=== PATIENT | male | born 1965 | race Caucasian/White ===

== ENCOUNTER 2019-11-28 11:14 | Emergency (ER) | payer OTHER, SELFPAY ==
--- NOTE | ~2019-11-28 | XR_ITS ---
XR hand RT min 3V 11/28/2019 11:27 INDICATION: Right hand pain after trauma PROCEDURE: 3 views right hand COMPARISON: 08/19/2019 FINDINGS: Fracture, dislocation or subluxation is not identified. The soft tissues appear within norm al limits. No foreign bodies are identified. IMPRESSION: 1: NO ACUTE BONE OR JOINT ABNORMALITY IDENTIFIED. Reviewed, dictated and finalized at location B.
--- NOTE | 2019-11-28 11:27 | ED.UPPEXIN ---
HPI - Extremity Injury (Upper) General Chief Complaint: Extremity Injury, Upper Stated Complaint: rt injury Time Seen by Provider: 11/28/19 11:25 Source: patient and RN notes reviewed Mode of arrival: ambulatory Limitations: no limitations History of Present Illness HPI narrative: 54 year old male who presents to [facility] care with complaints of injury to his right hand while at work today approximately 30 minutes ago.Patient states that handle off of press equipment came back and hit him across his right hand along his knuckle with pain most severe over 2rd and 3th knuckles with two small abrasions noted to hand. Patient is able to bend his fingers but pain is stated to be throbbing to his hand dorsal aspect, rates it as 8/10. Patient concerned of possible fracture especially since history of osteoporosis. MD complaint: injury to: right and hand Onset (ago): minute(s) (30) Other Extremity Injury: Right: hand Place: work Severity: severe Severity scale (1-10): 8 (throbbing) Relieving factors: none Exacerbating factors: movement of extremity Context: direct blow Associated symptoms: denies other symptoms Related Data Home Medications Medication Instructions Recorded Confirmed alendronate 70 mg PO WEEKLY 11/28/19 11/28/19 folic acid 1 mg PO DAILY 11/28/19 11/28/19 Allergies Allergy/AdvReac Type Severity Reaction Status Date / Time Iodinated Contrast Media Allergy Hives Verified 11/28/19 11:24 Review of Systems Review of Systems: Narrative: CONSTITUTIONAL: Denies fever, chills, or sweats. EYES: Denies visual changes, redness, or discharge. ENT: Denies rhinorrhea, congestion, sore throat, or otalgia. CARDIOVASCULAR: Denies chest pain, palpitations, or edema. RESPIRATORY: Denies cough or dyspnea. GASTROINTESTINAL: Denies abdominal pain, nausea, vomiting, or diarrhea. GENITOURINARY: Denies dysuria or hematuria. SKIN: Denies rash or itching. MUSCULOSKELETAL: Denies back pain, positive for pain to dorsal aspect of right hand over his knuckles from trauma which occurred at work today. NEUROLOGIC: Denies headache, numbness, or weakness. PSYCHIATRIC: Denies anxiety or depression. All systems reviewed & are unremarkable except as noted in HPI and below PMFSH Past Medical History Medical History (Updated 11/28/19 @ 17:10 by Klaudia Gonzalez NP) Anxiety Cirrhosis of liver Fracture, mandible GERD (gastroesophageal reflux disease) Hiatal hernia Hypertension Kidney stone Osteoporosis Surgical History Surgical History (Updated 11/28/19 @ 17:00 by Klaudia Gonzalez NP) History of cholecystectomy Family History Family History Father Carcinoma of colon Mother Hypertension Social History Social History (Updated 11/28/19 @ 16:59 by Klaudia Gonzalez NP) Smoking status: Former smoker Tobacco type: cigarettes Smoking end date: 02/05/15 Alcohol intake: former Alcohol use details: No alcohol since 2015 Substance use: unknown Comments At time of signature, agree with nursing past medical, surgical, social and family history. There is no relevant family history pertinent to the presenting complaint Exam Narrative: Exam Narrative: GENERAL: Well-appearing, well-nourished, and in no acute distress. HEAD: Normocephalic, atraumatic. EYES: PERRLA and EOMI. ENT: Nares clear, no rhinorrhea or epistaxis. Mucous membranes moist. NECK: Supple. no lymphadenopathy CHEST: Clear to auscultation. No respiratory distress.SAO2 100% on room air. HEART: Regular rate and rhythm. No murmur heard. Normal peripheral pulses. ABDOMEN: Soft, nontender, nondistended, normal active bowel sounds. EXTREMITIES: Normal range of motion. No edema. Pain with swelling to dorsal aspect of right hand across knuckle region with no acute bruising or redness noted, patient is able to move all fingers on own power, strong right radial pulse, nail bed emma well. SKIN: Warm, dry, no rash.
[2019-11-28 11:29] VITALS: BP 136/76; PULSE 63; RESP 16; TEMP 36.4; O2SAT 100
== END 2019-11-28 12:13 | disposition home or self-care (01) ==
PROVIDERS: Emergency Provider Registered Nurse
DX: S60.221A Contusion of right hand, initial encounter (principal); W22.8XXA Striking against or struck by other objects, initial encounter; Y99.0 Civilian activity done for income or pay; K74.60 Unspecified cirrhosis of liver; K21.9 Gastro-esophageal reflux disease without esophagitis; I10 Essential (primary) hypertension; M81.0 Age-related osteoporosis without current pathological fracture
CPT/HCPCS: 73130; 99213; G0463

== ENCOUNTER 2020-04-15 08:54 | Emergency (ER) | payer OTHER, SELFPAY ==
--- NOTE | ~2020-04-15 | CT_ITS ---
EXAMINATION: CT abdomen pelvis wo con DATE: 04/15/2020 10:45 INDICATION: Perirectal pain and abscess. TECHNIQUE: Computed tomography (CT) of the abdomen and pelvis was performed without intravenous contr ast. Automated exposure control and iterative reconstruction technique were employed. The dose-length product was 748.71 mGy-cm. COMPARISON: CT abdomen and pelvis 03/17/2016 FINDINGS: The visualized portions of the lung bases demonstrate mild atelectasis. Again seen is a 4 m m nodule in right middle lobe, likely benign. There are small right and trace left pleural effusions. The heart size is normal. No pericardial effusion. The liver demonstrates surface nodularity, consis tent with cirrhosis. There are changes of cholecystectomy. There is mild splenomegaly. Paraesophageal varices are noted. There is a paraumbilical portacaval shunt. The pancreas, adrenal glands, and kidn eys are normal. There is no urolithiasis. There are no dilated loops of bowel. The appendix is normal . There are no pathologically enlarged lymph nodes. There is no free intraperitoneal fluid. There is a 2.2 x 1.2 cm perianal mass. No definite drainable fluid. There is mild lumbar spondylosis. There ar e multiple chronic vertebral body fractures in the spine. IMPRESSION: 1. 2.2 x 1.2 cm perianal mass, consistent with phlegmon. 2. Cirrhosis of the liver with portal venous hypertension. 3. Small right pleural effusion. Reviewed, dictated and finalized at location A. [employer]ER
[2020-04-15 09:30] VITALS: BP 128/81; PULSE 52; RESP 14; TEMP 36.4; O2SAT 100
[2020-04-15] MEDS: SODIUM CHLORIDE 0.9% IV 1,000 ML 999 ML IV CONT (10:31)
[2020-04-15 11:24] LABS: Basophils Percent Auto 0.4 % (0.2-1.2); Eosinophils Absolute Auto 0.2 K/mm3 (0-0.3); Eosinophils Percent Auto 3.2 % (0-4.4); Hematocrit 41.5 % (42.0-52.0); Hemoglobin 14.2 g/dL (14.0-18.0); Immature Granulocyte Absolute 0.01 K/mm3 (0.00-0.031); Immature Granulocyte Percent A 0.2 % (0-0.5); Lymphocytes Absolute Auto 1.05 K/mm3 (0.9-3.2); Mean Corpuscular HGB Conc 34.2 g/dl (32-36); Mean Corpuscular Hemoglobin 32.4 pg (26-34); Mean Corpuscular Volume 94.7 fl (80-100); Mean Platelet Volume 12.7 fl (7.4-10.4); Monocytes Absolute Auto 0.7 K/mm3 (0.1-0.6); Monocytes Percent Auto 13.4 % (2.6-8.5); Neutrophils Absolute Auto 3.1 K/mm3 (1.3-6.7); Neutrophils Percent Auto 61.8 % (45.5-73.1); Platelet Count Result 73 k/mm3 (150-375); Red Blood Count 4.38 M/mm3 (4.6-6.20); Red Cell Distribution Width 13.2 % (11.5-14.5)
--- NOTE | 2020-04-15 11:36 | ED.GENADULT ---
HPI - General Adult General Chief complaint: Skin/Abscess/Foreign Body <Ricky Hunt PA-C - Last Filed: 04/15/20 11:56> Stated complaint: abscess on bottom <Ricky Hunt PA-C - Last Filed: 04/15/20 11:56> Time Seen by Provider: 04/15/20 09:28 <Ricky Hunt PA-C - Last Filed: 04/15/20 11:56> Source: patient and family <Ricky Hunt PA-C - Last Filed: 04/15/20 11:56> Mode of arrival: ambulatory <Ricky Hunt PA-C - Last Filed: 04/15/20 11:56> Limitations: no limitations <Ricky Hunt PA-C - Last Filed: 04/15/20 11:56> History of Present Illness HPI narrative: Patient is a 55-year-old male who presents with 1 week duration of rectal pain patient notes history of perirectal abscess in this location which has been lanced twice patient has seen general surgery the last time he had it lanced patient presents noting pain worse in the rectum denies any fever chills nausea vomiting or other complaints <Ricky Hunt PA-C - Last Filed: 04/15/20 11:56> Related Data Home medications: Home Medications Medication Instructions Recorded Confirmed alendronate 70 mg PO WEEKLY 11/28/19 11/28/19 folic acid 1 mg PO DAILY 11/28/19 11/28/19 <Ricky Hunt PA-C - Last Filed: 04/15/20 11:56> Allergies/adverse reactions: Allergies Allergy/AdvReac Type Severity Reaction Status Date / Time Iodinated Contrast Media Allergy Hives Verified 04/15/20 09:41 <Ricky Hunt PA-C - Last Filed: 04/15/20 11:56> Review of Systems Review of Systems: All systems reviewed & are unremarkable except as noted in HPI and below <Ricky Hunt PA-C - Last Filed: 04/15/20 11:56> PMFSH Past Medical History Medical History: Medical History Anxiety Cirrhosis of liver Fracture, mandible GERD (gastroesophageal reflux disease) Hiatal hernia Hypertension Kidney stone Osteoporosis <JASE Burk Last Filed: 04/15/20 11:56> Surgical History Surgical History: Surgical History History of cholecystectomy <Ricky Hunt PA-C - Last Filed: 04/15/20 11:56> Family History Family History: Family History Father Carcinoma of colon Mother Hypertension <Ricky Hunt PA-C - Last Filed: 04/15/20 11:56> Social History Social History: Social History Smoking status: Former smoker Tobacco type: cigarettes Smoking end date: 02/05/15 Alcohol intake: former Substance use: unknown <Ricky Hunt PA-C - Last Filed: 04/15/20 11:56> Exam Narrative: Exam Narrative: GENERAL: Well-appearing, well-nourished, and in no acute distress. HEAD: Normocephalic, atraumatic. EYES: PERRLA and EOMI. ENT: Nares clear, no rhinorrhea or epistaxis. Mucous membranes moist. CHEST: Clear to auscultation. No respiratory distress. No wheezes rales or rhonchi HEART: Regular rate and rhythm. No murmur heard. Normal peripheral pulses. ABDOMEN: Soft, nontender, nondistended. Tenderness around the perirectum around the prior incision there is no erythema swelling fluctuance noted no drainage from the rectum EXTREMITIES: Normal range of motion. No edema. SKIN: Warm, dry, no rash. NEURO: No focal deficits. Alert and oriented x3. PSYCH: Normal mood and affect. <Ricky Hunt PA-C - Last Filed: 04/15/20 11:56> Course Course Emergency Course: Patient in the room aware of case findings treatment plan and diagnosis agreeing to follow-up as instructed or to return if symptoms worsen or concerns. Patient aware of discussion with general surgery and recommendations was hydrated given medicine in the emergency department to include IV antibiotics will be placed on Augmentin as recommended by the general surgeon and
[2020-04-15 11:39] LABS: Alanine Aminotransferase 18 U/L (4-50); Albumin Level 3.6 g/dL (3.5-5.1); Alkaline Phosphatase 79 U/L (38-126); Anion Gap 3 mmol/L (8-16); Aspartate Amino Transferase 31 U/L (17-59); Bilirubin,Total 1.5 mg/dL (0.2-1.3); Blood Urea Nitrogen 17 mg/dL (9-20); CRP < 0.5 mg/dL (<1.0); Calcium 8.3 mg/dL (8.4-10.2); Carbon Dioxide 27 mmol/L (22-30); Chloride 106 mmol/L (98-107); Estimated CRCL calculation 105 ml/min; Estimated Glomerular Filt Rate > 60; Glucose 91 mg/dL (75-110); Potassium 4.2 mmol/L (3.4-5.0); Sodium 136 mmol/L (137-145)
[2020-04-15 12:00] VITALS: BP 117/77; PULSE 50; RESP 16; O2SAT 98
[2020-04-15] MEDS: AMPICILLIN SULB 3 GM/NS 100 ML 3 GM/100 ML VIAL IVPB (12:10)
[2020-04-15 12:45] VITALS: BP 115/80; PULSE 50; RESP 16; O2SAT 99
[2020-04-15 13:12] VITALS: BP 123/80; PULSE 51; RESP 16; O2SAT 99
== END 2020-04-15 13:10 | disposition home or self-care (01) ==
PROVIDERS: Emergency Medicine Emergency Medical Services; Emergency Provider General Practice
DX: K61.1 Rectal abscess (principal); K21.9 Gastro-esophageal reflux disease without esophagitis; Z87.442 Personal history of urinary calculi; M81.0 Age-related osteoporosis without current pathological fracture; Z87.891 Personal history of nicotine dependence; K76.6 Portal hypertension; K74.60 Unspecified cirrhosis of liver
CPT/HCPCS: 36415; 74176; 80053; 85025; 86140; 96361; 96365; 96367; 99284; J0131; J0295; J7030

== ENCOUNTER → 2021-02-01 10:50 | Outpatient (CLI) | payer OTHER, SELFPAY ==
--- NOTE | ~2021-02-01 | DEXA_ITS ---
Bone Density Report Name: ESTHER MCMANUS Age: 55 Sex: Male Ethnicity: White Date of : 1965 Indication: osteopenia; height loss; rheumatoid arthritis; Referring Provider: Khoi Camargo Study: Bone densitometry was performed. Exam Date: February 01, 2021 Accession number: [id number] Bone Density: Region BMD T-score Z-score Classification AP Spine (L1-L4) 0.990 -0.9 -0.5 Normal Femoral Neck (Left) 0.722 -1.5 -0.7 Osteopenia Total Hip (Left) 0.817 -1.4 -1.1 Osteopenia Femoral Neck (Right) 0.676 -1.9 -1.0 Osteopenia Total Hip (Right) 0.788 -1.6 -1.3 Osteopenia Total Hip Mean 0.803 -1.5 -1.2 Osteopenia World Health Organization criteria for BMD impression classify patients as: Normal (T-score at or above -1.0), Osteopenia (T-score between -1.0 and -2.5), or Osteoporosis (T-score at or below -2.5). 10-year Fracture Risk(1): Major Osteoporotic Fracture 6.8% Hip Fracture 1.0% Reported Risk Factors: [place] (), Neck BMD=0.676, BMI=31.4, rheumatoid arthritis (1) FRAX(R) Version 3.08. Fracture probability calculated for an untreated patient. Fracture probability may be lower if the patient has received treatment. Previous Exams: Region Exam Age BMD T-score BMD Change BMD Change Date g/cm2 vs Baseline vs Previous AP Spine(L1-L4) 02/01/2021 55 0.990 -0.9 0.157* 0.157* 12/11/2018 53 0.833 -2.3 Total Hip(Left) 02/01/2021 55 0.817 -1.4 0.038* 0.038* 12/11/2018 53 0.779 -1.7 Total Hip(Right) 02/01/2021 55 0.788 -1.6 0.035* 0.035* 12/11/2018 53 0.753 -1.9 *Denotes significance at 95% confidence level, LSC for AP Spine = 0.022 g/cm2, LSC for Total Hip = 0.027 g/cm2 Clinical Information Provided by Patient: Has rheumatoid arthritis Has used the following medications: Fosamax (i.e. alendronate), Calcium Patient maximum height was 69 Drinks caffeinated beverages Impression: The patient has low bone mass, based on the Right Femoral Neck T-score. The patient has an estimated ten-year risk of hip fracture of 1% and an estimated ten-year risk of major fracture of 6.8%, based on the WHO FRAX algorithm. No significant bone loss was observed. Discussion: BONE DENSITY IS LOW AT ONE OR MORE SKELETAL SITES. This patient's lowest T-score is low at one or more skeletal sites. It meets the World Health Organization's (WHO) criteria for ?low bone mass? (T-score between -1.0 a
== END ==
DX: M81.0 Age-related osteoporosis without current pathological fracture (principal); M85.852 Other specified disorders of bone density and structure, left thigh; M85.851 Other specified disorders of bone density and structure, right thigh
CPT/HCPCS: 77080